=== PATIENT | female | born 1980 | race Two or more races ===

== ENCOUNTER 2024-02-23 15:47 | Emergency (ER) | payer SELFPAY ==
--- NOTE | 2024-02-23 15:58 | PC.NURSE ---
patient refusing treatment
--- NOTE | 2024-02-23 16:25 | PC.NURSE ---
Patient refused to be medically evaluated. patient signed out AMA. released in police custody
== END 2024-02-23 17:25 | disposition left against medical advice (07) ==
PROVIDERS: Emergency Provider Dermatology
DX: Z53.21 Procedure and treatment not carried out due to patient leaving prior to being seen by health care provider (principal)